=== PATIENT | female | born 1995 | race Two or more races ===

== ENCOUNTER 2018-06-13 01:31 | Emergency (ER) | payer OTHER ==
[~2018-06-13] VITALS: Ht 154.9 cm; Wt 78.2 kg
[2018-06-13 01:34] VITALS: BP 160/103
[2018-06-13] MEDS ORDERED: HYDROcodone/APAP 5/325 TABLET ONE (01:52)
[2018-06-13] MEDS ORDERED: ONDANSETRON ODT 4 MG ONE (01:52)
[2018-06-13] MEDS ORDERED: ONDANSETRON ODT 4 MG PO ONE (02:00)
[2018-06-13] MEDS ORDERED: HYDROcodone/APAP 5/325 TABLET PO PRN (02:00)
[2018-06-13 02:33] LABS: BASOPHILS # (AUTO) 0.03 x10^3/uL (0-0.1); BASOPHILS % (AUTO) 0 % (0-1); EOSINOPHILS # (AUTO) 0.17 x10^3/uL (0-0.4); EOSINOPHILS % (AUTO) 1 % (1-7); LYMPHOCYTES # (AUTO) 3.54 x10^3/uL (1-3.4); LYMPHOCYTES % (AUTO) 27 % (22-44); MD NO; MEAN CORPUSCULAR HEMOGLOBIN 26.8 pg (27.0-34.8); MEAN CORPUSCULAR HGB CONC 32.4 g/dL (32.4-35.8); MONOCYTES # (AUTO) 0.88 x10^3/uL (0.2-0.8); MONOCYTES % (AUTO) 7 % (2-9); NEUTROPHILS # (AUTO) 8.49 x10^3/uL (1.8-6.8); NEUTROPHILS % (AUTO) 65 % (42-75); PLATELET COUNT 284 x10^3/uL (130-400); RED BLOOD COUNT 4.81 x10^6/uL (3.82-5.3); RED CELL DISTRIBUTION WIDTH 14.4 % (9.6-15.2)
[2018-06-13 02:46] LABS: ALBUMIN 3.4 g/dL (3.4-5.0); ANION GAP 12 mmol/L (5-15); CHLORIDE 106 mmol/L (98-107); CREATININE 0.73 mg/dL (0.55-1.02)
[2018-06-13 03:28] LABS: MICROSCOPIC AUTO
[2018-06-13 03:29] LABS: CULTURE INDICATED? NO
== END 2018-06-13 04:17 | disposition home or self-care (01) ==
LOC: ED 04:00
DX: N93.8 Other specified abnormal uterine and vaginal bleeding (principal); R10.2 Pelvic and perineal pain
CPT/HCPCS: 36415; 76830; 80048; 81001; 82040; 84703; 85025; 99285; Q0162